=== PATIENT | female | born 1980 | race Native Hawaiian/Other Pacific Islander ===

== ENCOUNTER 2018-10-19 09:19 | Emergency (ER) | payer OTHER ==
[2018-10-19 09:30] VITALS: BMI 23.6
[2018-10-19 10:38] VITALS: O2SAT 100
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
[2018-10-19 13:51] VITALS: BP 136/83; PULSE 72; RESP 17; TEMP 98.2
== END 2018-10-19 13:30 | disposition home or self-care (01) ==
LOC: H.ER 09:19
DX: S00.83XA Contusion of other part of head, initial encounter (principal); S13.4XXA Sprain of ligaments of cervical spine, initial encounter; V73.6XXA Passenger on bus injured in collision with car, pick-up truck or van in traffic accident, initial encounter